=== PATIENT | female | born 1980 | race Caucasian/White ===

== ENCOUNTER 2018-06-30 09:53 | Emergency (ER) | payer OTHER ==
[2018-06-30] MEDS ORDERED: Sodium Chloride 0.9% 1,000 ML IV STA ×2 (10:34→13:54)
[2018-06-30 11:04] LABS: BASO % 0.4 % (0.0-2.0); EOS % 0.1 % (0.0-4.0); HEMOGLOBIN 14.2 g/dL (12.0-16.0); LYMPH % 12.7 % (20.0-40.0); MEAN CELL VOLUME 89.2 fl (81.0-99.0); MEAN CORPUSCULAR HEMOGLOBIN 29.5 pg (27.0-31.0); MEAN CORPUSCULAR HGB CONC 33.1 g/dL (33.0-37.0); MEAN PLATELET VOLUME 7.7 fl (7.2-11.7); MONO # 0.2 K/uL (0.0-0.8); MONO % 2.7 % (0.0-10.0); NEUT # 6.6 K/uL (1.8-7.0); NEUT % 84.1 % (50.0-75.0); NRBC % 0.1 % (0.0-0.0); RBC 4.8 Mil/uL (3.80-5.20); RED CELL DISTRIBUTION WIDTH 12.9 % (11.5-14.5); WHITE BLOOD COUNT 7.9 K/uL (4.8-10.8)
[2018-06-30 11:12] LABS: ALB/GLOB RATIO 1.2 (1.0-2.1); ALBUMIN 4.6 g/dL (3.5-5.0); ALT/SGPT 22 U/L (9-52); AST/SGOT 36 U/L (14-36); BLOOD UREA NITROGEN 17 mg/dl (7-17); CALCIUM 9.5 mg/dL (8.4-10.2); GFR NON-AFRICAN AMERICAN > 60
--- NOTE | 2018-06-30 11:48 | ED PDOC ---
HPI: Abdomen Time Seen by Provider: 06/30/18 10:19 Chief Complaint (Nursing): Abdominal Pain Chief Complaint (Provider): Abdominal Pain History Per: Patient History/Exam Limitations: no limitations Onset/Duration Of Symptoms: Hrs (x this morning ), Sudden Onset Current Symptoms Are (Timing): Still Present Quality Of Discomfort: Sharp Associated Symptoms: denies: Fever, Vomiting, Diarrhea Additional Complaint(s): Shanta Gray is 37 year old female with no past medical history, who presents to the emergency department complaining acute onset of left flank abdominal pain, onset this morning while going to work. Patient describes pain as sharp and constant. She further reports of being 3 months sp ontaneous vaginal delivery. Patient states she went to urgent care who recommended her to come to the ED. She reports not having her last period since prior to and is currently breast feeding. Patient denies having any vomiting, urinary symptoms, diarrhea, or fever. PMD: No provider Past Medical History Reviewed: Historical Data, Nursing Documentation, Vital Signs Vital Signs: Last Vital Signs Temp 97.5 F L 06/30/18 09:57 Pulse 67 06/30/18 09:57 Resp 18 06/30/18 09:57 BP 149/77 06/30/18 09:57 Pulse Ox 100 06/30/18 09:57 - Medical History PMH: No Chronic Diseases - Surgical History Surgical History: No Surg Hx - Family History Family History: States: Unknown Family Hx - Home Medications Home Medications: Ambulatory Orders Medication Instructions Recorded Ciprofloxacin HCl [Cipro] 250 mg PO BID #10 tablet 06/30/18 Ibuprofen [Motrin Tab] 600 mg PO Q6 PRN #15 tab 06/30/18 Tamsulosin [Flomax] 0.4 mg PO DAILY #3 cap 06/30/18 oxyCODONE/Acetaminophen [Percocet 1 ea PO Q6 PRN #5 tab 06/30/18 5/325 mg Tab] - Allergies Allergies/Adverse Reactions: Allergies Allergy/AdvReac Type Severity Reaction Status Date / Time Penicillins AdvReac DIARRHEA Verified 06/30/18 10:07 Review of Systems ROS Statement: Except As Marked, All Systems Reviewed And Found Negative Constitutional: Negative for: Fever Gastrointestinal: Positive for: Abdominal Pain (left flank pain). Negative for: Vomiting, Diarrhea, Hematochezia Genitourinary Female: Negative for: Dysuria, Frequency, Incontinence, Hematuria, Vaginal Discharge, Vaginal Bleeding Physical Exam - Reviewed Nursing Documentation Reviewed: Yes Vital Signs Reviewed: Yes - Physical Exam Appears: Positive for: Well, No Acute Distress Head Exam: Positive for: ATRAUMATIC, NORMOCEPHALIC Skin: Positive for: Normal Color, Warm, Dry Eye Exam: Positive for: Normal appearance, EOMI, PERRL, Other (conjuctiva are pink ). Negative for: Scleral icterus ENT: Positive for: Normal ENT Inspection, Other (well hydrated ) Neck: Positive for: Normal, Painless ROM, Supple Cardiovascular/Chest: Positive for: Regular Rate, Rhythm. Negative for: Murmur, Tachycardia Respiratory: Positive for: Normal Breath Sounds. Negative for: Respiratory Distress Gastrointestinal/Abdominal: Positive for: Normal Exam, Soft. Negative for: Tenderness Back: Positive for: L CVA Tenderness (mild). Negative for: R CVA Tenderness, Vertebral Tenderness Extremity: Positive for: Normal ROM. Negative for: Tenderness, Deformity, Swelling Neurologic/Psych: Positive for: Alert, Oriented (x3) - Laboratory Results Result Diagrams: 06/30/18 10:47 06/30/18 10:47 Urine POC: Negative Urine dip results: Positive for: Blood. Negative for: Leukocyte Esterase - ECG O2 Sat by Pulse Oximetry: 100 (RA) Pulse Ox Interpretation: Normal Medical Decision Making Medical Decision Making: Time: 10:35 Initial Impression: abdomen pain Initial Plan: --Abd and pelvis without PO or IV contrast CT --CMP --ED urine --ED urine Dipstick --CBC with differential --Sodium Chloride 1,000 ml Patient states his pain is improving since onset. Provider will obtain urine to evaluate for blood or infection and will consider imaging if pain returns. Accession No. : [id number] Patient Name / ID : MATILDE MCGOWAN / [id number] Exam Date : 06/30/2018 12:19:19 ( Approved ) Study Comment : Sex / Age : F / 37Y Creator : Daniel Shahid MD Dictator : Daniel Shahid MD Station Engineer : Supervisor Quality Control : Daniel Shahid MD Approver2 : Report Date : 06/30/2018 12:52:55 My Comment : This report is currently processing and HAS NOT BEEN OFFICIALLY SIGNED BY THE PHYSICIAN - ESTIMATED TIME OF APPROVAL IS 06/30/2018 12:58. Date of service: 06/30/2018 PROCEDURE: CT Abdomen and Pelvis without intravenous contrast HISTORY: L flank pain hematuria COMPARISON: None. TECHNIQUE: Technique. Contrast dose: Radiation dose: Total exam DLP = mGy-cm. This CT exam was performed using one or more of the following dose reduction techniques: Automated exposure control, adjustment of the mA and/or kV according to patient size, and/or use of iterative reconstruction technique. FINDINGS: LOWER THORAX: Unremarkable. LIVER: Unremarkable. No gross lesion or ductal dilatation. GALLBLADDER AND BILE DUCTS: Unremarkable. PANCREAS: Unremarkable. No gross lesion or ductal dilatation. SPLEEN: Unremarkable. ADRENALS: Unremarkable. No mass. KIDNEYS AND URETERS: There is an ovoid shaped intraureteral calculus measuring 4.7 x 3.5 X 5.8 mm at the proximal left ureter at the L3-4 level causing mild left hy droureteronephrosis and moderate left perinephric reaction. No additional radiodense urolithiasis is identified bilaterally with the right kidney nonobstructive. Urinary bladder is distended but thin and smooth walled and otherwise unremarkable appearing. VASCULATURE: Unremarkable. No aortic aneurysm. BOWEL: The bowel is not appear obstructed. The stomach is collapsed.. APPENDIX: Unremarkable. Normal appendix. PERITONEUM: Unremarkable. No free fluid. No free air. LYMPH NODES: Unremarkable. No enlarged lymph nodes. BLADDER: Unremarkable. REPRODUCTIVE: Unremarkable. BONES: Mild S-shaped thoracolumbar scoliotic deformity identified. OTHER FINDINGS: None. IMPRESSION: 4.7 x 3.5 x 5.8 mm calculus obstructs the proximal left ureter causing mild left hydroureteronephrosis. No right-sided obstructive uropathy. No radiodense urolithiasis seen otherwise bilaterally. Urinary bladder is distended but thin and smooth walled. ------- Initiate flomax, Abx and pain control. mandatory followup urology. Explained potential for stone to need intervention. 2pm pain controlled results discussed. Given additional IVF. 330p remains comfortable, given urine strainer and CT disc, she prefers to go home and wants to go to [facility] for urologist as she has apartment in [facility]. parameters for return to ER discussed at length. Scribe Attestation: Documented by Michel Hameed, acting as a scribe for Fredy Sanchez III, DO. Provider Scribe Attestation: All medical record entries made by the Scribe were at my direction and personally dictated by me. I have reviewed the chart and agree that the record accurately reflects my personal performance of the history, physical exam, medical decision making, and the department course for this patient. I have also personally directed, reviewed, and agree with the discharge instructions and disposition. Disposition - Clinical Impression Clinical Impression: Nephrolithiasis - Patient ED Disposition Is Patient to be Admitted: No Counseled Patient/Family Regarding: Studies Performed, Need For Followup, Rx Given - Disposition Referrals: Stephanie Conteh MD [Medical Doctor] - Josue Cedillo MD [Medical Doctor] - Disposition: Routine/Home Disposition Time: 15:48 Condition: STABLE Additional Instructions: See urologist for further testing and possible intervention for kidney stone. Return to ER for any worse pain, fever, blood in urine or any concern. Take medications as directed. Prescriptions: Ciprofloxacin HCl [Cipro] 250 mg PO BID #10 tablet Ibuprofen [Motrin Tab] 600 mg PO Q6 PRN #15 tab PRN Reason: Pain, Moderate (4-7) oxyCODONE/Acetaminophen [Percocet 5/325 mg Tab] 1 ea PO Q6 PRN #5 tab PRN Reason: Pain, Severe (8-10) Tamsulosin [Flomax] 0.4 mg PO DAILY #3 cap Instructions: Kidney Stones in Adults Forms: [facility] ([place]ian)
--- NOTE | 2018-06-30 13:46 | CT ---
Date of service: 06/30/2018 PROCEDURE: CT Abdomen and Pelvis without intravenous contrast HISTORY: L flank pain hematuria COMPARISON: None. TECHNIQUE: Technique. Contrast dose: Radiation dose: Total exam DLP = mGy-cm. This CT exam was performed using one or more of the following dose reduction techniques: Automated exposure control, adjustment of the mA and/or kV according to patient size, and/or use of iterative reconstruction technique. FINDINGS: LOWER THORAX: Unremarkable. LIVER: Unremarkable. No gross lesion or ductal dilatation. GALLBLADDER AND BILE DUCTS: Unremarkable. PANCREAS: Unremarkable. No gross lesion or ductal dilatation. SPLEEN: Unremarkable. ADRENALS: Unremarkable. No mass. KIDNEYS AND URETERS: There is an ovoid shaped intraureteral calculus measuring 4.7 x 3.5 X 5.8 mm at the proximal left ureter at the L3-4 level causing mild left hydroureteronephrosis and moderate left perinephric reaction. No additional radiodense urolithiasis is identified bilaterally with the right kidney nonobstructive. Urinary bladder is distended but thin and smooth walled and otherwise unremarkable appearing. VASCULATURE: Unremarkable. No aortic aneurysm. BOWEL: The bowel is not appear obstructed. The stomach is collapsed.. APPENDIX: Unremarkable. Normal appendix. PERITONEUM: Unremarkable. No free fluid. No free air. LYMPH NODES: Unremarkable. No enlarged lymph nodes. BLADDER: Unremarkable. REPRODUCTIVE: Unremarkable. BONES: Mild S-shaped thoracolumbar scoliotic deformity identified. OTHER FINDINGS: None. IMPRESSION: 4.7 x 3.5 x 5.8 mm calculus obstructs the proximal left ureter causing mild left hydroureteronephrosis. No right-sided obstructive uropathy. No radiodense urolithiasis seen otherwise bilaterally. Urinary bladder is distended but thin and smooth walled.
[2018-06-30 19:34] VITALS: BP 130/70; PULSE 76; RESP 15; TEMP 97.9
[2018-07-01 15:00] VITALS: O2SAT 100
== END 2018-06-30 16:00 | disposition home or self-care (01) ==
LOC: H.ER 09:53
DX: N13.2 Hydronephrosis with renal and ureteral calculous obstruction (principal); Z88.0 Allergy status to penicillin
CPT/HCPCS: 74176; 80053; 81025; 85025; 96360; 96361; 99283; J7030